=== PATIENT | male | born 1930 | race Caucasian/White ===

== ENCOUNTER 2019-11-24 05:35 | Outpatient (CLI) | payer MEDICARE ==
[~2019-11-24] VITALS: Ht 162.6 cm; Wt 86.4 kg
[2019-11-24] MEDS ORDERED: AMLO1CAP PO (14:07)
[2019-11-24] MEDS ORDERED: MV-M1TAB38 PO (14:07)
[2019-11-24] MEDS ORDERED: UBID100T7 PO (14:07)
[2019-11-24] MEDS ORDERED: SPIR25TA PO (14:07)
[2019-11-24] MEDS ORDERED: CHOL200059 PO (14:07)
== END 2019-11-24 14:12 | disposition home or self-care (01) ==
LOC: PREOP 05:35
PROVIDERS: ATTEND Radiology Radiation Oncology
DX: Z01.818 Encounter for other preprocedural examination (principal)

== ENCOUNTER 2019-12-01 11:42 | Day surgery (SDC) | payer MEDICARE ==
[~2019-12-01] VITALS: Ht 162.6 cm; Wt 86.4 kg
[2019-12-01] VITALS (10 sets, daily range): BP systolic 144–167; BP diastolic 76–98
[~2019-12-01 11:42] MED LIST: AMLO1CAP PO; CHOL200059 PO; MV-M1TAB38 PO; SPIR25TA PO; UBID100T7 PO
[2019-12-01] MEDS ORDERED: LACTATED RINGERS 1,000 ML IV PRN (11:58)
[2019-12-01] MEDS ORDERED: LEVOFLOXACIN 500 MG/100 ML IV 100 ML IV ONE (12:00)
--- NOTE | 2019-12-01 12:57 | Progress Note-Pre Operative ---
Pre-Operative Progress Note H&P Reviewed The H&P was reviewed, patient examined and no changes noted. Date Seen by Provider: Dec 01, 2019 Time Seen by Provider: 12: Date H&P Reviewed: Dec 01, 2019 Time H&P Reviewed: 12:30 Pre-Operative Diagnosis: Prostate cancer cT1c, PSA 22, [place] 6 JUAN DAVID MELGAR MD Dec 01, 2019 12:57
--- NOTE | 2019-12-01 13:05 | Discharge Inst-Simple/Standard ---
Discharge Inst-Standard Reconcile Patient Problems Problems Reviewed?: Yes Discharge Medications New, Converted or Re-Newed RX: Other (patient already has) Patient Instructions/Follow Up Plan of Care/Instructions/FU: Patient has written paperwork Next appt will be at [facility] Activity as Tolerated: Yes Discharge Diet: No Restrictions Other Inst to Patient none JUAN DAVID MELGAR MD Dec 01, 2019 13:04
[2019-12-01] MEDS ORDERED: proPOfol 200 MG/20 ML (DIPRIVAN) VIAL IV ONE (15:00)
[2019-12-01] MEDS ORDERED: LIDOCAINE PF 2% 5 ML (XYLOCAINE) VIAL ONE (15:00)
[2019-12-01] MEDS ORDERED: SEVOFLURANE (ULTANE) 15 ML INHAL SOLN ONE (15:00)
[2019-12-01] MEDS ORDERED: fentaNYL INJECTION 100 MCG/2 ML AMP ONE (15:01)
[2019-12-01] MEDS ORDERED: GLYCOPYRROLATE 0.2 MG/ML (ROBINUL) 2 ML VIAL ONE (15:33)
[2019-12-01] MEDS ORDERED: morphine INJ 10 MG/ML 1ML (SYR OR VIAL) IVP ONE (16:00)
[2019-12-01] MEDS ORDERED: ONDANSETRON 4 MG/2 ML (SDV) Z0FRAN IVP PRN (16:00)
[2019-12-01] MEDS ORDERED: MEPERIDINE (DEMEROL) INJ 50 MG/ML IVP ONE (16:00)
--- NOTE | 2019-12-01 16:09 | Anesthesia-General Post-Op ---
General Patient Condition Mental Status/LOC: Same as Preop Cardiovascular: Satisfactory Nausea/Vomiting: Absent Respiratory: Satisfactory Pain: Controlled Complications: Absent Post Op Complications Complications None Follow Up Care/Instructions Patient Instructions None needed. Anesthesia/Patient Condition Patient Condition Patient is doing well, no complaints, stable vital signs, no apparent adverse anesthesia problems. No complications reported per nursing. OXANA FUENTES CRNA Dec 01, 2019 16:09
--- NOTE | 2019-12-01 16:26 | Progress Note-Post Operative ---
Post-Operative Progess Note Surgeon (s)/Chief Development Officer (s) Surgeon Rosalinda EDWARDS MD Chief Development Officer: JUAN DAVID MELGAR MD Pre-Operative Diagnosis Prostate cancer cT1c, PSA 22, [place] 6 Post-Operative Diagnosis Same as pre-op Procedure & Operative Findings Date of Procedure 12/01/19 Procedure Performed/Findings (1) Placement of fiducial gold seed markers (2) Injection of biodegradable hydrogel prostate-rectal spacer utilizing the SpaceO[employer] system Anesthesia Type General Estimated Blood Loss Estimated blood loss (mL): minimal Specimens/Packing Specimens Removed none Packing: none JUAN DAVID MELGAR MD Dec 01, 2019 16:26
== END 2019-12-01 17:55 | disposition home or self-care (01) ==
LOC: SDC 11:42
PROVIDERS: ATTEND Radiology Radiation Oncology
DX: C61 Malignant neoplasm of prostate (principal); I10 Essential (primary) hypertension; E11.9 Type 2 diabetes mellitus without complications; G47.33 Obstructive sleep apnea (adult) (pediatric); N30.20 Other chronic cystitis without hematuria; Z79.899 Other long term (current) drug therapy; Z88.5 Allergy status to narcotic agent; Z82.3 Family history of stroke; Z80.8 Family history of malignant neoplasm of other organs or systems
CPT/HCPCS: 87081